=== PATIENT | female | born 1985 | race Caucasian/White ===

== ENCOUNTER 2017-10-02 14:15 | Emergency (ER) | payer OTHER ==
[~2017-10-02] VITALS: Ht 157.5 cm; Wt 56.4 kg
[2017-10-02] MEDS ORDERED: PENI250T4 PO (14:24)
[2017-10-02 14:49] VITALS: BP 112/76
== END 2017-10-02 15:05 | disposition home or self-care (01) ==
LOC: EMS 14:15
DX: J02.9 Acute pharyngitis, unspecified (principal); Z88.0 Allergy status to penicillin
CPT/HCPCS: 99283